=== PATIENT | female | born 1970 ===

== ENCOUNTER 2024-07-06 07:48 | Outpatient (CLI) | payer OTHER, SELFPAY ==
--- NOTE | 2024-07-10 16:03 | WPDHOMESLEEP ---
Sleep Study - Home Unattended Date of Study: 07/06/24 Ordering Provider: Elvia Butts, MEDICAL FEE CLERK Interpreting Provider: Verito Junior MD Home Sleep Study Type: Watch PAT Height: 1.64 m Weight: 83.915 kg Body Mass Index: 31.2 Neck Circumference (inches): 14.5 [place]: 17 Reason for Sleep Study Hypersomnolence Sleep History Nini Villareal is a 54-year-old female with excessive fatigue, snoring, and witnessed apneas. The sleep questionnaire was not returned to the sleep lab, so there is minimal history to accompany the data. The factory maintenance technician notes shows that interference was present on the downloaded data, possibly due to artificial nails or gel bulgarian preventing the finger from staying properly positioned however there was sufficient data to download. [facility] Past Medical History Medical History (Updated 07/10/24 @ 16:09 by Verito Junior MD) Elevated blood pressure reading Easy bruising Fatigue Social History Social History (Updated 07/10/24 @ 16:10 by Verito Junior MD) Social History: Occasional caffeine use. Smoking status: Never smoker Alcohol intake: current Alcohol use details: Occasional alcohol Medications Medications: She does not take any medications routinely. Sleep Procedure The sleep study was completed using WatchPAT a technically adequate device with seven channels: peripheral arterial tone, actigraphy, body position, snore, respiratory movement, pulse oximetry, sleep staging, and heart rate. Prior to using the device, the patient received verbal and written instructions for its application and was provided with the help desk phone number for additional telephonic instruction with 24-hour availability of qualified personnel to answer questions. Sleep Architecture The total recording time is 10 hrs, 48 min. The total sleep time is 8 hrs, 38 min. Sleep latency is 5 minutes. REM latency is 36 minutes. The patient had 45 episodes of waking. Sleep architecture shows 18.5% deep sleep, 48.4% light sleep, and 33.1% stage REM. The patient spent 53.3% of total sleep time in the supine position. Sleep efficiency was 80%. Respiratory Analysis The overall AHI (pAHI 3%:) is 38.4. The central AHI is 1.7. The AHI was 38.2 in NREM and 38.9 in REM sleep. The AHI was 37.4 in Supine and 39.3 in Non-supine sleep. Percent of Mekhi Bazan respirations is 0. Oximetry Data The oxygen desaturation index (GURPREET 4%:) is 6.3. The mean saturation is 92%, and the lowest saturation is 79%. Time spent with saturation < 88% is 6.8 minutes. Snoring Profile Snoring average intensity is 42 dB. The patient snored above 45 decibels for 49.4 minutes, 9.5% of sleep time. Cardiac Profile The average pulse rate is 59 beats per minutes. The lowest pulse rate is 41 bpm. The highest pulse rate reported is 121 bpm. Cardiac rhythm analysis and sleep did not detect atrial fibrillation. Assessment and Plan Assessment and Plan (1) Obstructive sleep apnea: Code(s): G47.33 - Obstructive sleep apnea (adult) (pediatric) Status: Acute Assessment and Plan: This home sleep test using WatchPat on July 06, 2024 shows severe obstructive sleep apnea, the apnea-hypopnea index is 38.4 using a 3% criteria, desaturation to 79% occurred and moderate snoring was present. There was no difference between supine versus nonsupine sleep, nor was there difference between non-REM and REM sleep as far as the AHI. I recommend that this patient be prescribed Resmed AirSense 11 AutoPAP 5-15 cm H2O, CPAP mask/filters/tubing and humidifier chamber. This should be used with all episodes of sleep. Compliance should be reviewed within 31-90 days of starting therapy for usage greater than 4 hours per night greater than 70% of the nights. The patient should be asked about symptoms such as excessive daytime sleepiness, quality of sleep, decreased nocturia, increased mental functioning such as memory, mood, and concentration. If she does not respond favorably to autoPAP, she would benefit from a full night CPAP titration in the sleep lab, no naps on the day of the study, and a sleep aid such as Lunesta 2 mg to use at the sleep lab to initiate and maintain sleep during the monitored CPAP titration. For some people, this situation makes falling asleep challenging. The patient should be aware that mask fit is an important part of success using PAP therapy. If she does not like the mask after the 1st night of use, she should contact the DME provider and ask about an alternative mask. And alternative mask is an option which is free during the 1st 30 days of therapy. Patients who are successful long-term are people who use CPAP during all episodes of sleep even if it is challenging initially. If needed, patient may benefit from trazodone or other mild sleep inducing medication for 2 or 3 weeks with the initiation of PAP therapy. Using PAP while awake while watching television can help patients acclimate to wearing positive pressure. BMI is 31. Weight management is advised. Clinical data suggests that weight loss of 10% can reduce the severity of respiratory events and snoring and improve AHI by as much as 25%. Data The data obtained during this sleep study is adequate for interpretation. Certification This sleep study has been reviewed by a board certified sleep medicine physician.
[2024-07-10 16:21] VITALS: BMI 31.2
== END 2024-07-08 15:05 | disposition home or self-care (01) ==
DX: G47.33 Obstructive sleep apnea (adult) (pediatric) (principal)
CPT/HCPCS: 95800